=== PATIENT | male | born 1955 | race Caucasian/White ===

== ENCOUNTER 2018-10-14 08:47 | Emergency (ER) | payer BC ==
[2018-10-14 08:58] VITALS: BP 133/90
--- NOTE | 2018-10-14 09:58 | UC ---
Eye Complaint HPI - HPI Summary HPI Summary: 63 yo male presents with left eyelid redness and swelling for the last 3 days. He states he thought it was a stye as it was somewhat localized on his upper eyelid, but since day 1 it has worsened. Mild tenderness. No injury or vision changes. No fever. Feels well otherwise. - History of Current Complaint Chief Complaint: UCEye Stated Complaint: LT EYE PAIN Time Seen by Provider: 10/14/18 09:56 Hx Obtained From: Patient Onset/Duration: Gradual Onset Timing: Constant Severity Initially: Mild Severity Currently: Mild Pain Intensity: 2 - Allergies/Home Medications Allergies/Adverse Reactions: Allergies Allergy/AdvReac Type Severity Reaction Status Date / Time ibuprofen Allergy Swelling Verified 10/14/18 08:59 PMH/Surg Hx/FS Hx/Imm Hx - Additional Past Medical History Additional PMH: None - Surgical History Surgical History: None - Family History Known Family History: Positive: None - Social History Occupation: Employed Full-time Lives: With Family Alcohol Use: Occasionally Substance Use Type: None Smoking Status (MU): Never Smoked Tobacco Review of Systems All Other Systems Reviewed And Are Negative: Yes Constitutional: Positive: Negative Skin: Positive: Negative Eyes: Positive: Other - Eyelid redness and swelling Respiratory: Positive: Negative Cardiovascular: Positive: Negative Neurological: Positive: Negative Psychological: Positive: Negative Physical Exam - Summary Physical Exam Summary: GENERAL: WDWN. No pain distress. SKIN: No rashes, sores, lesions, or open wounds. HEENT: Head: AT/NC Eyes: EOM intact. PERRLA. LEFT EYE: Upper eyelid with mild erythema and edema. Mild TTP. No stye or abscess appreciated. Sclera and conjunctiva WNL. Nose: NTTP maxillary and frontal sinus. NECK: Supple. Nontender. No lymphadenopathy. CHEST: No accessory muscle use. Breathing comfortably and in no distress. CV: Pulses intact. Cap refill <2seconds NEURO: Alert. PSYCH: Age appropriate behavior. Triage Information Reviewed: Yes Vital Signs: Initial Vital Signs Temp 98 F 10/14/18 08:55 Pulse 72 10/14/18 08:55 Resp 16 10/14/18 08:55 BP 133/90 10/14/18 08:55 Pulse Ox 99 10/14/18 08:55 Vital Signs Reviewed: Yes Eye Complaint Course/Dx - Course Course Of Treatment: Blepharitis - will rx for anbx eye drops and have him use a warm compress - Differential Dx/Diagnosis Provider Diagnosis: Blepharitis of eyelid of left eye Discharge - Sign-Out/Discharge Documenting (check all that apply): Patient Departure All imaging exams completed and their final reports reviewed: No Studies - Discharge Plan Condition: Stable Disposition: HOME Prescriptions: Ofloxacin 0.3% (Eye Drop) [Ocuflox OPTH 0.3% (Eye Drop)] 1 drop LEFT EYE QID #1 btl Patient Education Materials: Blepharitis (ED) Referrals: Kevin Garland MD [Primary Care Provider] - Additional Instructions: If you develop a fever, shortness of breath, chest pain, new or worsening symptoms - please call your PCP or go to the ED immediately. Your blood pressure was high at todays visit. Please see your primary provider within 4 weeks for recheck and re-evaluation - Billing Disposition and Condition Condition: STABLE Disposition: Home
== END 2018-10-14 10:20 | disposition home or self-care (01) ==
LOC: UCEAST 08:47
DX: H01.004 Unspecified blepharitis left upper eyelid (principal)
CPT/HCPCS: 99212; G0463